=== PATIENT | female | born 1955 | race Caucasian/White ===

== ENCOUNTER → 2020-06-21 15:01 | Outpatient (CLI) | payer MEDICARE, OTHER, SELFPAY ==
[2020-06-21 15:37] LABS: Basophils % 0.7 % (0.1-2.0); Eosinophils # 0.1 K/mm3 (0.0-0.4); Eosinophils % 1.4 % (0.1-12.0); Hematocrit 34.8 % (37.0-47.0); Hemoglobin 12.1 g/dL (12.2-16.2); Lymphocytes # 2.9 K/mm3 (0.7-4.5); Lymphocytes % 53.1 % (10-50); Mean Corpuscular HGB Conc 34.8 g/dL (31.8-35.4); Mean Corpuscular Hemoglobin 31.9 pg (27.0-31.2); Mean Corpuscular Volume 91.6 fl (81-99); Mean Platelet Volume 7.2 fl (7.4-10.4); Monocytes # 0.2 K/mm3 (0.1-1.0); Monocytes % 3.9 % (1.7-9.3); Neutrophils # 2.2 K/mm3 (1.8-7.8); Platelet Count 230 K/mm3 (142-424); Red Cell Distribution Width 14.1 % (11.5-17.5); White Blood Count 5.4 K/mm3 (4.8-10.8)
[2020-06-21 15:39] LABS: MANUAL DIFFERENTIAL MANUAL DIFFERENTIAL (MANUAL DIFF)
[2020-06-21 16:02] LABS: Lymphocytes % 55 % (10-50); Monocytes % 3 % (2-9); Neutrophils % 42 % (42-76); Platelet Estimate Normal; RBC Morphology Normal; Total Cells Counted 100
[2020-06-21 16:11] LABS: Alanine Aminotransferase 18 U/L (12-78); Albumin Level 4.5 g/dl (3.5-5.0); Albumin/Globulin Ratio 1.7 (1.1-1.8); Alkaline Phosphatase 67 U/L (38-126); Anion Gap 11.8 mEq/L (5-15); Aspartate Amino Transferase 32 U/L (14-36); Bilirubin,Total 0.8 mg/dl (0.2-1.3); Blood Urea Nitrogen 16 mg/dl (7-17); Calcium 10.9 mg/dl (8.4-10.2); Carbon Dioxide 30 mmol/L (22.0-30.0); Chloride 103 mmol/L (98-107); Estimated Glomerular Filt Rate 72 ml/min (>60); GFR (African American) 87 ML/MIN (>60); Globulin 2.7 g/dL (1.3-3.2); Glucose 96 mg/dl (74-100); Potassium 3.8 mmoL/L (3.5-5.1); Sodium 141 mmol/L (136-145); Total Protein,Serum 7.2 g/dl (6.3-8.2)
[2020-06-21 16:22] LABS: Intact Parathyroid Hormone 177.4 pg/mL (7.5-53.5)
[2020-06-24 15:09] LABS: Calcium, Ionized 6.2 mg/dL (4.5-5.6)
== END ==
PROVIDERS: Visit Provider Otolaryngology
DX: E21.3 Hyperparathyroidism, unspecified (principal)
CPT/HCPCS: 36415; 80053; 82330; 83970; 85007; 85025

== ENCOUNTER → 2020-06-29 13:42 | Outpatient (CLI) | payer MEDICARE, OTHER, SELFPAY ==
[2020-06-29 16:07] LABS: Coronavirus 19 IgG Antibody Negative (Negative); Coronavirus 19 IgM Antibody Negative (Negative)
== END ==
PROVIDERS: Visit Provider Otolaryngology
DX: Z01.818 Encounter for other preprocedural examination (principal)
CPT/HCPCS: 36415; 86328

== ENCOUNTER → 2020-08-03 11:08 | Outpatient (CLI) | payer MEDICARE, OTHER, SELFPAY ==
--- NOTE | 2020-08-03 | ECG_ITS ---
APPROVED REPORT Exam: Resting ECG HR:49 bpm ECG Measurements Heart Rate 49 AXES MD 124 P 68 QRSd 88 QRS 45 QT 420 T 60 QTc 379 <Conclusion> Marked sinus bradycardia Low voltage Abnormal ECG Electronically signed by : Jasson Carbone, 08/03/2020 16:32:59
[2020-08-03 11:43] LABS: Basophils % 0.4 % (0.1-2.0); Eosinophils # 0.1 K/mm3 (0.0-0.4); Eosinophils % 1.8 % (0.1-12.0); Hematocrit 37.6 % (37.0-47.0); Hemoglobin 13.2 g/dL (12.2-16.2); Lymphocytes # 2.6 K/mm3 (0.7-4.5); Lymphocytes % 44.4 % (10-50); Mean Corpuscular HGB Conc 35.2 g/dL (31.8-35.4); Mean Corpuscular Hemoglobin 32.2 pg (27.0-31.2); Mean Corpuscular Volume 91.5 fl (81-99); Mean Platelet Volume 7.1 fl (7.4-10.4); Monocytes # 0.3 K/mm3 (0.1-1.0); Monocytes % 4.7 % (1.7-9.3); Neutrophils # 2.9 K/mm3 (1.8-7.8); Neutrophils % 48.8 % (37.0-80.0); Platelet Count 246 K/mm3 (142-424)
[2020-08-03 17:58] LABS: Chloride 105 mmol/L (98-107); Potassium 4.2 mmoL/L (3.5-5.1); Sodium 141 mmol/L (136-145)
[2020-08-03 18:01] LABS: Alanine Aminotransferase 18 U/L (12-78); Albumin Level 4.5 g/dl (3.5-5.0); Albumin/Globulin Ratio 1.7 (1.1-1.8); Alkaline Phosphatase 50 U/L (38-126); Anion Gap 10.2 mEq/L (5-15); Aspartate Amino Transferase 25 U/L (14-36); Blood Urea Nitrogen 21 mg/dl (7-17); Carbon Dioxide 30 mmol/L (22.0-30.0); Estimated Glomerular Filt Rate 56 ml/min (>60); GFR (African American) 68 ML/MIN (>60); Globulin 2.7 g/dL (1.3-3.2); Total Protein,Serum 7.2 g/dl (6.3-8.2)
[2020-08-03 18:02] LABS: Calcium 11.3 mg/dl (8.4-10.2); Glucose 99 mg/dl (74-100)
[2020-08-03 18:19] LABS: T4 (Thyroxine) 6.9 ug/dl (5.53-11.0)
[2020-08-03 18:33] LABS: Thyroid Stimulating Hormone 2.18 uIU/mL (0.465-4.68)
== END ==
PROVIDERS: Visit Provider Otolaryngology
DX: D49.7 Neoplasm of unspecified behavior of endocrine glands and other parts of nervous system; E01.0 Iodine-deficiency related diffuse (endemic) goiter; Z03.818 Encounter for observation for suspected exposure to other biological agents ruled out
CPT/HCPCS: 36415; 80053; 84436; 84443; 85025; 93005; U0003

== ENCOUNTER → 2020-09-11 16:25 | Outpatient (CLI) | payer MEDICARE, OTHER, SELFPAY ==
[2020-09-11 21:30] LABS: Intact Parathyroid Hormone 71.5 pg/mL (7.5-53.5)
[2020-09-11 21:35] LABS: Free T4 (Free Thyroxine) 0.73 ng/dl (0.78-2.19)
[2020-09-11 21:49] LABS: Thyroid Stimulating Hormone 1.04 uIU/mL (0.465-4.68)
[2020-09-13 20:01] LABS: Calcium, Ionized 5.4 mg/dL (4.5-5.6)
[2020-09-21 08:58] LABS: 1,25 Dihydroxy Vitamin D 65 pg/mL (.); 1,25-Dihydroxy, Vitamin D-2 26 pg/mL (.); 1,25-Dihydroxy, Vitamin D-3 39 pg/mL (.)
== END ==
PROVIDERS: Visit Provider Otolaryngology
DX: D35.1 Benign neoplasm of parathyroid gland (principal); I10 Essential (primary) hypertension
CPT/HCPCS: 36415; 82330; 82652; 83970; 84439; 84443

== ENCOUNTER → 2020-12-27 10:53 | Outpatient (CLI) | payer MEDICARE, OTHER, SELFPAY ==
[2020-12-27 12:43] LABS: Free T4 (Free Thyroxine) 0.89 ng/dl (0.78-2.19)
[2020-12-27 13:14] LABS: Thyroid Stimulating Hormone 0.75 uIU/mL (0.465-4.68)
[2020-12-28 18:41] LABS: Calcium, Ionized 5.3 mg/dL (4.5-5.6); Triiodothyronine (T3) Free 3.2 pg/mL (2.0-4.4)
== END ==
PROVIDERS: Visit Provider Otolaryngology
DX: E04.1 Nontoxic single thyroid nodule (principal); E04.9 Nontoxic goiter, unspecified
CPT/HCPCS: 36415; 82330; 83970; 84439; 84443; 84481

== ENCOUNTER → 2021-01-01 09:41 | Outpatient (CLI) | payer MEDICARE, OTHER, SELFPAY ==
--- NOTE | 2021-01-01 09:41 | US_ITS ---
PROCEDURE: US BIOPSY THYROID CLINICAL INDICATION: THYROID NODULE Dominant right thyroid nodule COMPARISON: No exams were available for comparison TECHNIQUE: Following obtaining informed consent, using aseptic technique and local anesthesia with buffered lidocaine, fine-needle aspiration was performed of the nodule of interest using sonographic guidance. 3 passes were made into the nodule with a 25-gauge needle. Specimen was given to cytology. The patient tolerated the procedure well without evidence of immediate complications and left the ultrasound suite in stable condition. FINDINGS: Pre biopsy ultrasound confirms the presence of a solid nodule in the upper pole of the right lobe of the thyroid gland measuring approximately 1.6 cm CYTOLOGY: Negative for malignant cells IMPRESSION: Uneventful ultrasound-guided thyroid FNA on the right showing benign findings Dictated by: Ilia Pierce MD 01/03/2021 18:37 Ilia Pierce MD in [place] 01/03/2021 18:37
== END ==
PROVIDERS: PCP General Practice; Visit Provider Otolaryngology
DX: E04.1 Nontoxic single thyroid nodule (principal); E04.9 Nontoxic goiter, unspecified
CPT/HCPCS: 10005; 76536; 76942; 88173

== ENCOUNTER 2025-02-02 12:06 | Outpatient (CLI) | payer MEDICARE, OTHER, SELFPAY ==
--- NOTE | 2025-02-02 | CA_ITS ---
APPROVED REPORT Exam: Pharmacologic Technologist: Princess Dave Ht: 5 ft 3 in Wt: 158 lbs BSA: 1.75 m2 Stress Test Details Test: Lexiscan Reason for pharmacologic stress test: physical limitation. HR Resting HR: 66 bpm Max Heart Rate (APMHR): 152 bpm Max HR Achieved: 94 bpm Target HR (85% APMHR): 129 bpm % of APMHR: 62 Recovery HR: 83 bpm BP Resting BP: 151.0/90.0 mmHg Max BP: 152.0/94.0 mmHg Recovery BP: 149.0/87.0 mmHg ECG Stress ECG Conclusion Symptoms: SOB and nausea with Lexiscan. Arrhythmias/Ectopy: None. ST-T Changes: unremarkable with Lexiscan. Electronically signed by : Stephani Hawk MD 02/02/2025 15:19:54
--- NOTE | 2025-02-02 12:07 | NM_ITS ---
APPROVED REPORT Exam: Nuclear Stress Test Indication: Chest pain, SOB, HTN, High cholesterol, Family history Patient Location: Outpatient Stress Tech: Princess Cook [place] Tech:Eleonora Porras, ARRT, RT (R)(N) Ht: 5 ft 3 in Wt: 158 lbs Bra Size: 40C HR: 66 bpm BP: 151/90 mmHg BSA: 1.75 m2 TID: 1.19 BMI: 27.9 History: Chest pain, SOB, HTN, High cholesterol, Family history Procedure: Patient received 0.4 mg of intravenous Lexiscan, resting heart rate 66 bpm, resting blood pressure 151/90 mmHg, with Lexiscan maximum heart rate achieved was 86 bpm which is % of the maximum predicted heart rate and blood pressure was 146/84 mmHg. With Lexiscan, patient denied any complaint of chest pain. Cardiac Stress and Resting SPECT Images: Cardiac Stress and Resting SPECT images were obtained using technetium 99m Myoview 32.0 mCi stress and 10.67 mCi at rest. Resting and stress imaging in supine and prone positions demonstrate no evidence of fixed or reversible perfusion defects. Gated imaging demonstrates normal global and regional LV systolic function. LVEF is calculated 60%. Conclusion: No evidence of fixed or reversible perfusion defects. Gated imaging demonstrates normal global and regional LV systolic function. LVEF is calculated 60%. Electronically signed by : Stephani Hawk MD 02/02/2025 15:18:36
--- NOTE | 2025-02-02 12:07 | CA_ITS ---
FINAL REPORT CLINICAL HISTORY: Neck pain Hx- parathyroidectomy COMPARISON: None FINDINGS: RIGHT CAROTID: CCA PSV -84 cm/sec ICA PSV -93 cm/sec ICA/CCA PSV ratio -1.1. Comments: Mild plaque disease is noted. LEFTCAROTID: CCA PSV -59. cm/sec ICA PSV -76. cm/sec ICA/CCA PSV ratio -1.3. Comments: Mild plaque disease is noted. Antegrade flow is seen within the vertebral arteries. IMPRESSION: Carotid stenosis classified less than 50% Reviewed, Interpreted and Dictated by Tracy Miller MD Transcribed by Kelsey Saucedo Authenticated and [facility]
[2025-02-02] MEDS: ISOTOPE MYOVIEW (PER STUDY) 1 DOSE IV (13:39)
[2025-02-02] MEDS: REGADENOSON 0.4MG/5ML SYRINGE 0.4 MG IV (13:39)
[2025-02-02] MEDS: SODIUM CHLORIDE 0.9% 10ML SYR (RAD ONLY) 10 ML IV ×2 (13:39)
== END 2025-02-02 23:59 | disposition home or self-care (01) ==
LOC: RAD 12:07
PROVIDERS: PCP Internal Medicine; Visit Provider Internal Medicine
DX: R07.89 Other chest pain (principal); I10 Essential (primary) hypertension; I71.9 Aortic aneurysm of unspecified site, without rupture; G35 Multiple sclerosis; R06.09 Other forms of dyspnea; R60.1 Generalized edema; R42 Dizziness and giddiness; M54.2 Cervicalgia; R07.0 Pain in throat; R09.89 Other specified symptoms and signs involving the circulatory and respiratory systems
CPT/HCPCS: 78452; 93017; 93018; 93880; A9502; J2785